=== PATIENT | female | born 1985 | race American Indian/Alaskan Native ===

== ENCOUNTER 2019-08-30 05:12 | Emergency (ER) | payer SELFPAY ==
--- NOTE | 2019-08-30 06:41 | Emergency Department Report ---
ED General Adult HPI - General Chief complaint: Vaginal Bleeding Stated complaint: OB+ Source: patient, EMS Mode of arrival: Stretcher Limitations: No Limitations - History of Present Illness Initial comments: She is a 34 year old female who arrived before my shift. I was told that she had bipolar disorder/schizophrenia I would not cooperate with workup. However at the time of my encounter she is cooperating and will shortly be in route for an ultrasound. She does have pressurized speech but is coherent. She states that she is approximately 14 weeks under the care of a high risk physician in [place]. She states that since last night she has been bleeding and has used "a whole box of tampons". She states that she passed a "mass". She claims she has "identical twins". She also gives a history of antiphospholipid syndrome taking daily heparin. -: Gradual, hour(s) Radiation: other (not currently complaining of pain) Associated Symptoms: denies other symptoms Treatments Prior to Arrival: none - Related Data Allergies Allergy/AdvReac Type Severity Reaction Status Date / Time No Known Allergies Allergy Unverified 08/30/19 05:52 ED Review of Systems ROS: Stated complaint: OB+ Other details as noted in HPI Constitutional: denies: chills, fever Eyes: denies: eye pain, eye discharge, vision change ENT: denies: ear pain, throat pain Respiratory: denies: cough, shortness of breath, wheezing Cardiovascular: denies: chest pain, palpitations Endocrine: no symptoms reported Gastrointestinal: denies: abdominal pain, nausea, diarrhea Genitourinary: as per HPI. denies: urgency, dysuria Musculoskeletal: denies: back pain, joint swelling, arthralgia Skin: denies: rash, lesions Neurological: denies: headache, weakness, paresthesias Psychiatric: denies: anxiety, depression Hematological/Lymphatic: denies: easy bleeding, easy bruising ED Past Medical Hx - Past Medical History Previous Medical History?: Yes Hx Diabetes: Yes (GESTATIONAL DM) Hx Asthma: Yes Additional medical history: PCOS, OCD, BIPOLAR 1, BORDRLINE SCHIZOPHRENIA, MANIC DEPRESSION, IMPULSIVE BEHAVIOR - Surgical History Past Surgical History?: Yes Additional Surgical History: CS SECTION X2 - Social History Smoking Status: Current Every Day Smoker Substance Use Type: Marijuana ED Physical Exam - General Limitations: Physical Limitation General appearance: alert, in no apparent distress, obese - Head Head exam: Present: atraumatic, normocephalic - Eye Eye exam: Present: normal appearance. Absent: scleral icterus - ENT ENT exam: Present: mucous membranes moist - Neck Neck exam: Present: normal inspection - Respiratory Respiratory exam: Present: normal lung sounds bilaterally. Absent: respiratory distress - Cardiovascular Cardiovascular Exam: Present: regular rate, normal rhythm. Absent: systolic murmur, diastolic murmur, rubs, gallop - GI/Abdominal GI/Abdominal exam: Present: soft, normal bowel sounds. Absent: distended, tenderness, guarding, rebound, rigid - External exam: Present: other (tampon with some blood but no active bleeding at the introitus) - Extremities Exam Extremities exam: Present: normal inspection - Back Exam Back exam: Present: normal inspection - Neurological Exam Neurological exam: Present: alert, oriented X3, CN II-XII intact. Absent: motor sensory deficit - Psychiatric Psychiatric exam: Present: manic (hypo manic), other (pressurized speech) - Skin Skin exam: Present: warm, dry, intact, normal color. Absent: rash ED Course Vital Signs 08/30/19 08/30/19 05:25 07:11 Temperature 98.2 F Pulse Rate 89 93 H Respiratory 15 11 L Rate Blood Pressure 126/76 125/88 Blood Pressure 126/76 [Left] O2 Sat by Pulse 100 Oximetry ED Medical Decision Making - Lab Data Result diagrams: 08/30/19 05:58 Laboratory Results - last 24 hr 08/30/19 08/30/19 05:58 05:58 WBC 7.2 RBC 5.01 Hgb 12.8 Hct 39.1 MCV 78 L MCH 26 L MCHC 33 RDW 17.7 H Plt Count 346 Lymph % (Auto) 39.1 H [place] % (Auto) 5.1 Eos % (Auto) 1.5 Baso % (Auto) 1.1 Lymph # 2.8 [place] # 0.4 Eos # 0.1 Baso # 0.1 Seg Neutrophils % 53.2 Seg Neutrophils # 3.8 HCG, Quant < 2 - Medical Decision Making HCG is negative. No evidence of intrauterine . The patient is appropriate for outpatient follow-up. Critical care attestation.: If time is entered above; I have spent that time in minutes in the direct care of this critically ill patient, excluding procedure time. ED Disposition Clinical Impression: Dysfunctional uterine bleeding Bipolar disorder Qualifiers: Active/Remission status: in partial remission Most recent bipolar episode type: hypomanic Qualified Code(s): F31.71 - Bipolar disorder, in partial remission, most recent episode hypomanic Disposition: DC- TO HOME OR SELFCARE Is pt being admited?: No Does the pt Need Aspirin: No Condition: Stable Instructions: Dysfunctional Uterine Bleeding (ED) Additional Instructions: Had any acute change or problem as needed. Referral to [facility] and [facility]. Referrals: [facility] [Outside] - 3-5 Days JUAN DAVID SMITH MD [Staff Physician] - 3-5 Days Time of Disposition: 07:56
[2019-08-30 06:43] LABS: Basophils # (Auto) 0.1 K/mm3 (0.0-0.1); Basophils % (Auto) 1.1 % (0.0-1.8); Eosinophils # (Auto) 0.1 K/mm3 (0.0-0.4); Eosinophils % (Auto) 1.5 % (0.0-4.3); Hematocrit 39.1 % (30.3-42.9); Hemoglobin 12.8 gm/dl (10.1-14.3); Lymphocytes # (Auto) 2.8 K/mm3 (1.2-5.4); Lymphocytes % (Auto) 39.1 % (13.4-35.0); Mean Corpuscular HGB Conc 33 % (30-34); Mean Corpuscular Volume 78 fl (79-97); Monocytes # (Auto) 0.4 K/mm3 (0.0-0.8); Monocytes % (Auto) 5.1 % (0.0-7.3); Platelet Count 346 K/mm3 (140-440); Red Blood Count 5.01 M/mm3 (3.65-5.03); Red Cell Distribution Width 17.7 % (13.2-15.2)
[2019-08-30 07:21] VITALS: BP 125/88
--- NOTE | 2019-08-30 07:34 | Ultrasound Report ---
EXAMINATION: Obstetrical Ultrasound, 08/30/2019 INDICATION: Vaginal bleeding in early . COMPARISON: None FINDINGS: The uterus is normal in size measuring 9.2 x 4.3 x 4.8 cm. No intrauterine is identified. The right adnexa appears within normal limits. The left adnexa demonstrates multiple cysts, the large st of which measures 2.4 cm. No free pelvic fluid is identified. IMPRESSION: 1. No evidence of intrauterine . Diagnostic considerations include failed or failing pregna ncy, too early to visualize or less likely ectopic . Please correlate with patient 's clinical circumstances. 2. Multiple left adnexal cysts. Signer Name: Johanna Rodriguez MD Signed: 08/30/2019 7:30 AM Workstation Name: [employer]
== END 2019-08-30 08:01 | disposition home or self-care (01) ==
LOC: ED 05:12
DX: N93.8 Other specified abnormal uterine and vaginal bleeding (principal); F31.71 Bipolar disorder, in partial remission, most recent episode hypomanic; E11.9 Type 2 diabetes mellitus without complications; J45.909 Unspecified asthma, uncomplicated; E28.2 Polycystic ovarian syndrome; F17.200 Nicotine dependence, unspecified, uncomplicated; F12.10 Cannabis abuse, uncomplicated
CPT/HCPCS: 36415; 76801; 76817; 84702; 85025; 86850; 86900; 86901

== ENCOUNTER 2019-08-30 08:41 | Emergency (ER) | payer SELFPAY ==
[2019-08-30 08:54] VITALS: BP 126/78
== END 2019-08-30 09:00 | disposition left against medical advice (07) ==
LOC: ED 08:41
DX: F41.0 Panic disorder [episodic paroxysmal anxiety] (principal); Z53.21 Procedure and treatment not carried out due to patient leaving prior to being seen by health care provider